=== PATIENT | male | born 1985 | race Hispanic/Latino ===

== ENCOUNTER 2025-02-05 02:10 | Emergency (ER) | payer OTHER ==
[~2025-02-05] VITALS: Ht 177.8 cm; Wt 90.3 kg
[~2025-02-05 02:10] MED LIST: ALBUHFA IH; AZIT250T9 PO; PRED50TA2 PO
--- NOTE | 2025-02-05 02:38 | ERN ---
General Chief Complaint: Knee Injury/Swelling Stated Complaint: C/O PAIN TO RIGHT KNEE Time Seen by MD: 02:18 History of Present Illness Initial Comments Mr. Paige is a very pleasant 39-year-old male with a significant past medical history who presents today with a chief complaint of right knee pain. Patient reports that he was bending down to fix a lawnmower when he felt a pop on the right lateral side of his knee as he stood up. Since then the patient was had persistent pain and swelling. He has been able to bear weight but with pain he does have pain with flexing and twisting. Patient denies locking or catching of the knee has no recent trauma aside from today's event he has a remote history of an MCL sprain but states that this pain is more severe. Allergies: Coded Allergies: Penicillins (Unverified Allergy, Unknown, 02/11/23) Home Meds Active Scripts Prednisone (Prednisone) 50 Mg Tablet, 50 MG PO DAILY for 5 Days, #5 TAB 0 Refills Prov:ELVIS CORDERO MD 02/11/23 Azithromycin (Azithromycin) 250 Mg Tablet, 250 MG PO DAILY for 5 Days, #6 TAB 0 Refills Take 2 tablets the first day and then 1 tablet every day for 4 days Prov:ELVIS CORDERO MD 02/11/23 Albuterol Sulfate (Ventolin Hfa/Proventil Hfa/Proair Hfa) 90 Mcg/Puff Puff, 90 MCG IH Q4H for shortness of breath, #1 INHALER 0 Refills Prov:ELVIS CORDERO MD 02/11/23 Past Medical History Past Medical History: No Pertinent History Past Surgical History: None Social History Social History: Smokers ROS Dictation Constitutional: Negative for fever,chills, and weight loss Eyes: Negative for injury, pain,redness, and discharge ENT: Negative for injury,pain or swelling Cardiovascular: Negative for chest pain, palpitations, and edema Respiratory: Negative for shortness of breath, cough, and wheezing, Abdomen/GI: Negative for abdominal pain, nausea, vomiting, diarrhea, and constipation Back: Negative for injury and pain : Negative for injury, bleeding and discharge MS/Extremity: Right knee pain, swelling and difficulty walking Skin: Negative for rash, and discoloration Neuro: Negative for headache, weakness, numbness, tingling, and seizure Psych: Negative for suicide ideation, homicidal ideation, and hallucinations Physical Exam Physical Exam Dictation General: awake, alert, NAD Head/Face: Normocephalic, atraumatic Eyes: PERRL, EOMI, vision at baseline ENT: oral cavity clear, TMs clear, no signs of infection Neck: Trachea midline, supple, no nuchal rigidity Cardiovascular: RRR, normal S1/S2, No MRGs, no JVD Respiratory: CTAB, no respiratory distress, No rales or wheezes Abdomen: Soft, non-tender, non-distended, normal bowel sounds, no guarding or rebound. Skin: Warm, dry, normal turgor, no rash MS/Extremity: Right knee visibly swollen compared to left no ecchymosis or open wound. Patient was tenderness over the lateral joint line. Range of motion is limited by pain especially with full flexion. Patient was distal pulses intact no sensory deficit Neuro: COAx4, GCS 15, strength 5/5, CN 2-12 intact, normal cerebellar exam, normal gait, Psych: Normal behavior, mood, and affect normal MDM Patient presented with a acute right knee pain after mechanical injury CT imaging of the right knee revealed small joint effusion with a small popliteal cyst but no acute fracture. Exam shows lateral joint tenderness swelling and pain with flexion but intact distal neurovascular status. Findings are consistent with a soft tissue injury likely a meniscal irritation or sprain without the need of an immediate surgical intervention patient was stable MDM: Differential diagnosis: And will ambulate with the assistance. Unspecified meniscus irritation, Santos's cyst Rationale: Tests considered and ordered secondary to shared decision making include: Previous outside records reviewed: Old ER visits. Risk of complication and/or morbidity or mortality of patient management: None Medications-Per medication reconciliation Need for hospitalization: Patient does not meet criteria for hospitalization. Need for emergency major/minor surgery: No There are no social concerns with this patient. Prescription drug management Prescriptions will include symptomatic care Patient's prior external medical records from other ER visits were reviewed by me as indicated. Prior testing and results from previous visits were reviewed. Prior tests were taken into account with medical decision making and resource utilization, independent historian/historians were used to obtain complete medical history. I independently interpreted the test that were performed, results were reviewed by me and considered findings on radiology if ordered. Medical management and examination interpretation discussions were had by me with other qualified healthcare professionals as indicated for the patient's care. ED Course Orders Procedure Category Date Status Time Ct Low Ext W/O CT 02/05/25 Taken Contrast 02:33 Hydrocodone/Apap PHA 02/05/25 Complete 10/325 Tab ([place] 10) 03:00 Ketorolac PHA 02/05/25 Complete Tromethamine 30mg/Ml 03:00 Ketorolac PHA 02/05/25 Complete Tromethamine 30mg/Ml 02:41 Current Medications Medications (Trade) Dose Ordered Sig/Lou Route PRN Reason Start Time Stop Time Status Last Admin Dose Admin Acetaminophen/ Hydrocodone Bitart (NOR[place] 10) 1 tab ONCE ONCE PO 02/05/25 03:00 02/05/25 03:01 DC 02/05/25 02:44 Ketorolac Tromethamine (toRADol) 30 mg ONCE ONCE IM 02/05/25 03:00 02/05/25 03:01 DC 02/05/25 02:44 Ketorolac Tromethamine (toRADol) 30 mg STK-MED ONCE .ROUTE 02/05/25 02:41 02/05/25 02:47 DC Vital Signs Date Time Temp Pulse Resp B/P (MAP) Pulse Ox O2 Delivery O2 Flow Rate FiO2 02/05/25 02:37 98.2 73 18 118/72 97 Room Air* 0 21 02/05/25 02:13 98.2 71 20 119/71 97 Room Air DX & DISP Disposition: Discharge Departure Impression: Primary Impression: Unspecified internal derangement of right knee Additional Impression: Effusion, unspecified knee Condition: Stable Additional Instructions: You were treated in the ER today for a right knee injury with small fluid buildup in his small cyst behind the knee. There were no broken bones or major teres that were seen on your scan. Care plan at home: Rest: minimize walking heavy lifting for the next 3-5 days Ice: apply ice to the knee 20 minutes at a time 3 to 4 times a day Compression: Using a brace her wrap if needed for comfort Elevation: Keep the leg elevated when resting. Use ibuprofen 400-600 mg p.o. every 6 hours to 8 hours with food as needed for pain and swelling. Follow up Follow up with the Orthopedics reports medicine in the next 1-2 weeks for possible MRI if pain persists or worsens. Earlier follow up if inability to bear weight, locking, catching, severe s welling or worsening pain. Follow up with the ED if her unable to walk, knee becomes extremely swollen or you have numbness or cold sensation issues. Referrals: SELF,REFERRAL (PCP) JAYSON HEREDIA MD Feb 05, 2025 02:38
[2025-02-05] MEDS: HYDROcodone/acetaMINOPHEN 10/325 MG TAB PO ONE (02:44)
[2025-02-05] MEDS: ketOROlac 30MG VIAL (30MG/ML) IM ONE (02:44)
[2025-02-05] MEDS: ketOROlac 30MG VIAL (30MG/ML) ONE (03:19)
[2025-02-05 03:46] VITALS: BP 120/66; PULSE 82; RESP 20; TEMP 98.3; O2SAT 96
--- NOTE | 2025-02-05 08:14 | HMCIMG ---
CT LOW EXT W/O CONTRAST HISTORY: Right knee pain COMPARISON: None TECHNIQUE: Multiple sequential axial images of the right knee were obtained including post processing sagittal and coronal reconstruction images. Patient was not given contrast through intravenous route. FINDINGS: No acute displaced fracture or dislocation is seen. There is small joint effusion. Small Santos's cyst is seen measuring 4 cm. Soft tissue swelling seen. IMPRESSION: 1. Small joint effusion. Small Santos's cyst. No acute displaced fracture. CT was performed with one or more following dose reduction techniques: automated exposure control, adjustment of the mA and kv according to patient's size, or use of a iterative reconstruction technique.
== END 2025-02-05 03:50 | disposition home or self-care (01) ==
LOC: EDH 02:10
DX: M23.91 Unspecified internal derangement of right knee (principal); M25.461 Effusion, right knee; F17.200 Nicotine dependence, unspecified, uncomplicated; Z79.52 Long term (current) use of systemic steroids; Z88.0 Allergy status to penicillin
CPT/HCPCS: 99285; 73700; 96372; J1885